=== PATIENT | female | born 1955 ===

== ENCOUNTER 2021-02-04 09:30 | Inpatient (IN) | payer OTHER ==
[~2021-02-04] VITALS: Ht 160 cm; Wt 91.6 kg
[2021-02-05] MEDS ORDERED: COZAAR100 MG PO (07:49)
[2021-02-05] MEDS ORDERED: LIPITOR40 M1 PO (07:50)
[2021-02-05] MEDS ORDERED: TENORMIN25 MG PO (07:50)
[2021-02-05] MEDS ORDERED: METHOTREXATE2.5 MG (07:51)
[2021-02-13] MEDS ORDERED: INTEGRA PLUS C1 EACH PO (07:25)
[2021-02-13] MEDS ORDERED: XARELTO10 MG PO (07:25)
[2021-02-13] MEDS ORDERED: OXYC1TAB9 PO (07:25)
== END 2021-02-13 20:25 | disposition home or self-care (01) | DRG 470 ==
LOC: SURH 02-11 06:30 → O/R 02-11 06:30 → SURH 02-11 09:30
PROVIDERS: ADMIT Orthopaedic Surgery Sports Medicine; ATTEND Orthopaedic Surgery Sports Medicine
PROC: 0SRC0J9 Replacement of Right Knee Joint with Synthetic Substitute, Cemented, Open Approach (ICD-10-PCS; principal; 2021-02-11 11:57)
DX: M17.11 Unilateral primary osteoarthritis, right knee (principal); Z20.822 Contact with and (suspected) exposure to COVID-19